=== PATIENT | male | born 1935 | race Caucasian/White ===

== ENCOUNTER → 2016-12-06 | Outpatient (CLI) | payer MEDICARE, OTHER ==
[~2016-12-06] MED LIST: ASPI81TA3 PO; CRAN300T PO; ESCI10TA PO; GLUC100015 PO; IODIXANOL LOCM 100 ML BTL ONE; LEVO50TA74 PO; OMEG1CAP90 PO; ROSU5TAB5 PO; SOD CHLORIDE 0.9% 100 ML ONE
--- NOTE | 2016-12-06 20:45 | RADRPT ---
PROCEDURE: CT abdomen and pelvis with contrast. CLINICAL INDICATION: Pain, ischial ulcer, rebound and colostomy TECHNIQUE: CT scan of the abdomen and pelvis without contrast was [facility] axial imaging from the lung bases through the pubis symphysis. The patient was scanned after the uneventful intravenous administration of 99 cc of Visipaque 320 Sagittal and coronal refo rmatted images were made. CTDI vol 33.46 mGy and DLP 2244.08 mGy-cm One of the following 3 dose reduction techniques were used during this CT examination: automated exp osure control; adjustment of the mA and /or kV according to patient size; or use of iterative recons truciton technique. COMPARISON: None available FINDINGS: CT abdomen: The lung bases are clear. No focal infiltrates, masses or effusions are present. Mild cardiomegaly is present. Vascular calcifications are present of the aorta and the coronary arteries. The visua lized liver is normal without focal lesions present. The spleen, pancreas, and bilateral adrenal gl ands are normal. Cholelithiasis is present in a decompressed gallbladder without evidence for acute cholecystitis. The kidneys demonstrate bilateral renal cortical cysts and nonobstructive left Nephrolithiasis of ap proximately 4-5 mm calculi in the left mid pole renal april. The bilateral renal cortical cysts ran ging in size from 4 mm in the left inferior pole of the kidney to the largest cyst measuring 5.9 cm AP by 5.6 cm in transverse dimensions in the left anterior mid pole of the kidney. Vascular calcifications are present of the aorta without evidence for aneurysmal dilatation. The visualized bowel demonstrates a left anterior lower quadrant of the abdomen colostomy without ev idence for obstruction present. No evidence for ascites or pneumoperitoneum is present. CT pelvis: The appendix is not visualized however no evidence for acute appendicitis is present. The urinary b ladder demonstrates the diffuse thickened wall with punctate foci of air present. Recommend correla tion with recent manipulation. The presence of a right lateral wall 2 cm diverticulum is noted. Mi ld prostatic enlargement is present. The visualized subcutaneous tissues and in the posterior buttock demonstrate the inflammation , thic kening, and fluid collection of the right paramidline and midline subcutaneous tissues which measure s a maximum of 4.3 cm AP by 9 cm in transverse dimensions at its inferior extent posterior to the sa silvestre. Delete the In the left subcutaneous tissues posterior to the ischial tuberosity is a fluid co llection with induration and thickening extending to the skin surface. This has a a central area of decreased attenuation and has subtle peripheral enhancement with multiple low attenuation foci note d. The smallest abscess is within the left gluteus conor or medius muscles and measures 2 cm in tr ansverse dimensions. The larger more superficial fluid collection also compatible with abscess or s eroma measures 7.7 cm transverse by 6 cm in AP dimensions. This extends and involves cortical irregu larity of the left ischial tuberosity with bony sclerosis present concerning for osteomyelitis. In addition, ossific or calcific debris is noted anterior to the left ischial tuberosity. Also noted i n the region of the left in acetabular roof and lateral femoral neck and greater trochanteric region is a fluid collection with calcific or ossific debris noted which measures approximately 6 cm super ior inferiorly by 4.2 cm transversely by 4.6 cm in anterior-posterior dimensions. This is concernin g for an additional fluid collection or abscess and septic arthritis and adjacent osteomyelitis are considerations. MRI of the left hip and pelvis is recommended with contrast to further evaluate. No definite pelvic masses ascites or pneumoperitoneum is present. The visualized spine demonstrate s pondylosis present with trace degenerative retrolisthesis of L5 on S1 arsh IMPRESSION: 1. Left buttock and gluteus musculature fluid collections with largest measuring 6 cm AP by 7.9 cm in transverse dimensions by sclerosis and cortical irregularity of the left ischial tuberosity. Thi s concerning for an abscess with associated osteomyelitis. Recommend MRI with contrast to further e valuate. 2. Midline and right paramidline posterior subcutaneous abscess with maximum dimensions of 9 cm tra nsverse by 4.3 cm in AP dimensions inferior to the sacrum. 3. Left lateral hip fluid collection with an involvement and cortical irregularity of the left acet abulum and the left greater trochanter. Recommend MRI with contrast to evaluate for abscess, septic arthropathy, and possible osteomyelitis. 4. Cholelithiasis without evidence for acute cholecystitis. 5. Nonobstructive left nephrolithiasis and bilateral renal cortical cysts. 6. Atherosclerotic vascular disease 7. Bladder wall thickening with a right posterolateral bladder wall diverticulum. A. Nonobstructi ve bowel gas pattern with left lower quadrant colostomy. A call report was made to AARON CAT at 12/06/2016 8:41:07 PM following the completion of the exa mination by the undersigned. RPTAT: HDC .Antonieta Diamond MD, MD Date Time Electronically viewed and signed by .Antonieta Diamond MD, MD on 12/06/2016 20:44 .C/
== END | disposition home or self-care (01) ==
LOC: C/S 10:57
PROVIDERS: ATTEND Surgery
DX: K80.20 Calculus of gallbladder without cholecystitis without obstruction (principal); N20.0 Calculus of kidney; N28.1 Cyst of kidney, acquired; I70.8 Atherosclerosis of other arteries; N32.3 Diverticulum of bladder
CPT/HCPCS: 74177; Q9967

== ENCOUNTER → 2017-08-06 | Outpatient (CLI) | payer MEDICARE, OTHER ==
[~2017-08-06] MED LIST changes: -IODIXANOL LOCM 100 ML BTL ONE; -SOD CHLORIDE 0.9% 100 ML ONE
[2017-08-06 15:11] LABS: IRON 18 ug/dl (35-150)
[2017-08-06 15:16] LABS: ALANINE AMINOTRANSFERASE 24 IU/L (13-69); ALBUMIN 3.1 g/dl (3.3-4.9); ALBUMIN/GLOBULIN RATIO 0.75; ALKALINE PHOSPHATASE 74 IU/L (42-121); ANION GAP 11 (8-16); ASPARTATE AMINO TRANSFERASE 12 IU/L (15-46); BLOOD UREA NITROGEN 23 mg/dl (7-20); CALCIUM 9.2 mg/dl (8.4-10.2); CARBON DIOXIDE 29 mmol/L (21-31); CHLORIDE 102 mmol/L (97-110); CREATININE 0.67 mg/dl (0.61-1.24); GLUCOSE 102 mg/dl (70-220); POTASSIUM 4.2 mmol/L (3.5-5.1); SODIUM 138 mmol/L (135-144); TOTAL PROTEIN 7.2 g/dl (6.1-8.1)
[2017-08-06 15:21] LABS: TOTAL IRON BINDING CAPACITY 262 ug/dl (241-421)
[2017-08-06 16:20] LABS: FREE T3 2.92 pg/ml (2.77-5.27)
[2017-08-08 18:21] LABS: PSA, FREE 0.1 ng/mL
== END | disposition home or self-care (01) ==
LOC: LAB 14:16
PROVIDERS: ATTEND Family Medicine Adult Medicine
DX: E78.2 Mixed hyperlipidemia (principal); I73.9 Peripheral vascular disease, unspecified; E03.9 Hypothyroidism, unspecified; G82.20 Paraplegia, unspecified
CPT/HCPCS: 80053; 82977; 83540; 84153; 84154; 84439; 84443; 84481